=== PATIENT | female | born 1965 | race Caucasian/White ===

== ENCOUNTER 2022-02-07 03:30 | Emergency (ER) | payer BC ==
[~2022-02-07 03:30] MED LIST: MAXALT10 MG PO; SYNTHROID88 MCG PO; TOPAMAX200 MG PO; WELLBUTRIN SR100 MG PO
[2022-02-07 04:17] LABS: HEMOGLOBIN 14.4 gm/dl (12.3-15.3); RED BLOOD COUNT 4.78 M/UL (4.00-5.10); WHITE BLOOD COUNT 5.7 K/UL (4.5-11.0)
[2022-02-07 04:54] LABS: BUN/CREATININE RATIO 25 (0-10)
== END 2022-02-07 05:37 ==
LOC: ER1 03:30
PROVIDERS: Student in an Organized Health Care Education/Training Program
DX: I63.9 Cerebral infarction, unspecified (principal); Z20.822 Contact with and (suspected) exposure to COVID-19; Z86.73 Personal history of transient ischemic attack (TIA), and cerebral infarction without residual deficits
CPT/HCPCS: 70450; 71045; 80053; 82550; 82553; 82962; 84484; 85025; 93005; 99285; U0002